=== PATIENT | female | born 1955 | race Caucasian/White ===

== ENCOUNTER 2020-03-27 12:50 | Emergency (ER) | payer MEDICARE, SELFPAY ==
[2020-03-27 12:57] VITALS: BP 171/93; PULSE 86; RESP 18; TEMP 36.8; O2SAT 98; BMI 31.5
--- NOTE | 2020-03-27 13:15 | HMH.EDSKAF ---
ED Disposition Clinical Impression: Cellulitis, Insect bites Disposition: Home, Self-Care Condition on Discharge: Good Instructions: DI for Skin Abscess Prescriptions: Doxycycline Hyclate [Doxycycline 100mg Capsule] 100 mg PO BID 14 Days #28 cap Transmission Status: Pending to [facility] #[id number] Referrals: Oz Fitzgerald MD [Primary Care Provider] - - Critical Care Critical Care Time: No Attestation: On , the high probability of a clinically significant, sudden or life threatening deterioration of the following system(s) required my full and direct attention, intervention and personal management. The time I documented below is in addition to time spent performing reported procedures but includes the following listed in this critical care notation. Medical Decision Making - Medical Records Medical records reviewed: Yes: I reviewed the patient's medical records. - Quentin Inquiry Pt receiving controlled substance: No Vital Signs: 03/27/20 12:57 Temperature 98.3 F Temperature Source Oral Pulse Rate [Left Radial] 86 Respiratory Rate 18 Blood Pressure [Left Arm] 171/93 H Blood Pressure Mean [Left Arm] 119 Blood Pressure Source [Left Arm] Automatic Cuff Blood Pressure Position [Left Arm] Sitting 02 Sat by Pulse Oximetry 98 Oxygen Delivery Method Room Air - Lab Data Lab results reviewed: Yes: I reviewed the patient's lab results. Skin/Abscess/FB HPI - General Chief complaint: Skin/Abscess/Foreign Body Stated complaint: tick bite Time Seen by Provider: 03/27/20 13:15 Mode of Arrival: Ambulatory Source of Information: Patient Limitations: No Limitations Description of Symptoms (Recalled from ER Triage Doc. by RN): Pt reports last night she pulled a large tick off of her in her groin area. Pt reports she thinks the head of tick is still under her skin, states area is inflammed. - History of Present Illness HPI narrative: 64-year-old female presents the ED with a tick bite. Patient was bit by a tick a couple of days ago in the groin area and she is noticed some significant erythema and swelling in the area. She also states that is draining as well. She states the pain is about 3 out of 10 pressure-like sensation alleviating factors include warm compresses. Patient denies any recent subjective or objective fevers patient also denies any chills or shakes. Patient also denies any nausea or vomiting. - Related Data Home Medications Medication Instructions Recorded Confirmed Losartan Potassium 50 mg PO BID 05/10/20 05/10/20 Pantoprazole Sodium [Protonix 40mg 40 mg PO DAILY 03/27/20 03/27/20 tablet] Triamterene/Hydrochlorothiazid 1 each PO DAILY 03/27/20 03/27/20 [Triamterene-Hctz 37.5-25 mg Tb] Previous Rx's Medication Instructions Recorded Doxycycline Hyclate [Doxycycline 100 mg PO BID 14 Days #28 cap 03/27/20 100mg Capsule] Allergies Allergy/AdvReac Type Severity Reaction Status Date / Time No Known Allergies Allergy Verified 03/27/20 13:08 [facility] History - Hepatitis A Screen Drug use history?: No High risk sexual behaviors?: No History of sexually transmitted infection?: No Currently employed?: No Childcare worker?: No Do you have indoor plumbing?: Yes Do you have electricity?: Yes Attestation statement:: This patient has been screened for Hepatitis A risk factors. I have reviewed the patient's past medical history: Yes Medical History: Denies:: Diabetes Mellitus Type 1, Diabetes Mellitus Type 2 - Social History Alcohol Intake: never Occupational Status: other ROS Obtained: Yes All systems reviewed & no additional complaints - Constitutional Constitutional: Reports system reviewed and no additional complaints, except as docu - Eyes Eyes: Reports system reviewed and no additional complaints, except as docu - ENT Ears, Nose, Mouth, and Throat: Reports system reviewed and no additional complaints, except as docu - Cardi
[2020-03-27 13:48] VITALS: BP 145/89; PULSE 82; RESP 20; TEMP 36.8; O2SAT 98
== END 2020-03-27 13:48 | disposition home or self-care (01) ==
PROVIDERS: Emergency Provider Family Medicine; PCP Specialist
DX: L03.314 Cellulitis of groin (principal); W57.XXXA Bitten or stung by nonvenomous insect and other nonvenomous arthropods, initial encounter; I10 Essential (primary) hypertension
CPT/HCPCS: 99281

== ENCOUNTER 2023-06-14 10:24 | Emergency (ER) | payer MEDICARE, SELFPAY ==
[2023-06-14 10:25] VITALS: BP 140/81; PULSE 82; RESP 18; TEMP 36.9; O2SAT 97; BMI 34.5
[2023-06-14 10:41] VITALS: BP 140/81; PULSE 83; O2SAT 95
--- NOTE | 2023-06-14 10:41 | CT_ITS ---
FINAL REPORT TECHNIQUE: Thin section axial CT images of the right hip with coronal and sagittal reformats were performed. This study was performed with techniques to keep radiation doses as low as reasonably achievable (ALARA). Individualized dose reduction techniques using automated exposure control or adjustment of mA and/or kV according to the patient''s size were employed. CLINICAL HISTORY: right hip pain FINDINGS: There are no fractures. There are no masses or fluid collections there are mild degenerative changes.. There are no soft tissue abnormalities. IMPRESSION: Mild degenerative changes without evidence of fracture or bony destruction. Reviewed, Interpreted and Dictated by Malick Iniguez MD Transcribed by Brittney Carver Authenticated and [facility]
--- NOTE | 2023-06-14 10:41 | CT_ITS ---
FINAL REPORT TECHNIQUE: IV contrast enhanced exam. CLINICAL HISTORY: RLQ/R groin/Rhip pain FINDINGS: Abdomen: No acute density is seen within the lung bases. The gallbladder is unremarkable. There are cysts seen in the anterior liver dome. There is an indeterminate right renal mass which could represent complex cyst or solid neoplasm measuring 14 mm. The remaining solid abdominal organs are unremarkable. There is mild biliary ductal dilatation. No bowel obstruction is present. There is no free air. No fluid collection is seen. There is no adenopathy. Pelvis: The appendix is normal. Uterus and ovaries are within normal limits. There is a small right inguinal hernia containing fat. No bowel wall thickening is present. There is no free fluid. No pelvic mass is seen. IMPRESSION: Indeterminate right renal mass which could represent complex cyst or solid neoplasm. Recommend follow-up renal mass protocol CT for further evaluation. Reviewed, Interpreted and Dictated by Malick Iniguez MD Transcribed by Brittney Carver Authenticated and [facility]
--- NOTE | 2023-06-14 10:43 | HMH.EDGENADL ---
Discharge Plan Disposition Patient Disposition: Home, Self-Care Prescriptions Prescriptions: New nitrofurantoin monohyd/m-cryst 100 mg capsule 100 mg PO BID 5 Days Qty: 10 0RF Rx Instructions: must administer with a meal/food No Action losartan 50 MG tablet 50 mg PO BID pantoprazole 40 MG tablet,delayed release (DR/EC) 40 mg PO DAILY triamterene-hydrochlorothiazid 1 EACH tablet 1 each PO DAILY doxycycline hyclate 100 MG capsule 100 mg PO BID 14 Days Qty: 28 0RF Referrals Follow up/Referrals: Provider,Referral, [Primary Care Provider] - See instructions Activity Restrictions/Add. Instructions Additional Instructions/Restrictions: No explanation for your chronic right groin pain please follow-up with an orthopedic surgeon to discuss outpatient MRI or other additional diagnostic tests or work-up. He did have some mild degenerative changes of the right hip which could be causing some of your pain. Additionally there was an incidental finding of a small mass versus cyst on your kidney and a recommended renal protocol CAT scan has been suggested to be performed outpatient please follow-up with primary care doctor regarding this. Return with any worsening symptoms or concerns Clinical Impressions Clinical Impression: Right groin pain, Acute UTI, Kidney mass Discharge ED Provider: Lexy Beaza General Adult HPI General Chief complaint: PAIN Stated complaint: groin pain Time Seen by Provider: 06/14/23 10:33 History of Present Illness HPI narrative: 67-year-old female here with right groin pain. She states that this pain began in November of this year after she was walking her dog and fell and landed directly onto a concrete step. Since that time she has had some intermittent pain that was relieved at one point by some oral steroids but pain returned. She states over the last week is gotten worse and woke her up this morning from sleep. She states that the pain has been severe worsen with movement. No bulging that she is aware of redness warmth fevers or chills. She also states that today she had a low bit of urinary retention and has had decreased bowel movements as of late. No abdominal surgeries in the past. No dysuria frequency or urgency. She additionally does state that her bowel movements are irregular at baseline. Related Data Home Medications Medication Instructions Recorded Confirmed losartan 50 mg tablet 50 mg PO BID Hypertension 03/27/20 03/27/20 pantoprazole 40 mg tablet,delayed 40 mg PO DAILY GERD 03/27/20 03/27/20 release triamterene 37.5 1 each PO DAILY Hypertension 03/27/20 03/27/20 mg-hydrochlorothiazide 25 mg tablet Previous Rx's Medication Instructions Recorded doxycycline hyclate 100 mg capsule 100 mg PO BID 14 days #28 caps 03/27/20 nitrofurantoin 100 mg PO BID 5 days #10 caps 06/14/23 monohydrate/macrocrystals 100 mg capsule Allergies Allergy/AdvReac Type Severity Reaction Status Date / Time No Known Allergies Allergy Verified 03/27/20 13:08 [facility] Disclaimer: The information contained in this section may have been updated after the patient was seen, as this information can be updated by other users. Social History Smoking Status: Never smoker alcohol intake: never current occupational status: other Travel in the last 8 weeks: None ROS Obtained: Yes All systems reviewed & no additional complaints except as documented Physical Exam General General appearance: alert Respiratory Respiratory exam: Present normal lung sounds bilaterally Cardiovascular Cardiovascular exam: Present regular rate; Absent tachycardia Abdominal Exam Abdominal exam: Present other (PatientRight lower quadrant tenderness no rebound guarding masses other symptoms) External exam: Present other (Right inguinal canal tenderness but there is no definitive hernia erythema swelling etc. Right hip exam is normal from range of motion
[2023-06-14 10:55] LABS: Microscopic, Urine URINE MICROSCOPIC (MICROSCOPIC)
[2023-06-14 11:00] VITALS: BP 134/68; PULSE 75; O2SAT 96
[2023-06-14 11:04] LABS: Appearance,Urine CLEAR (Clear); Bilirubin,Urine Negative (Negative); Blood, Urine Negative (Negative); Color,Urine YELLOW (Yellow); Glucose,Urine (UA) Negative (Negative); Ketones,Urine Negative (Negative); Leukocyte Esterase,Urine 1+ (Negative); Nitrate,Urine Negative (Negative); PH,Urine 5.5 (5.0-8.5); Protein,Urine Negative (Negative); Specific Gravity, Urine 1.025 (1.005-1.030); Urobilinogen,Urine 0.2 EU/dl (0.2)
[2023-06-14 11:05] LABS: Basophils # 0.1 K/mm3 (0-0.2); Basophils % 0.6 % (0.1-2.0); Eosinophils # 0.1 K/mm3 (0.0-0.4); Eosinophils % 1.4 % (0.1-12.0); Hematocrit 42.7 % (37.0-47.0); Hemoglobin 14.1 g/dL (12.2-16.2); Lymphocytes # 1.7 K/mm3 (0.7-4.5); Lymphocytes % 17.5 % (10-50); Mean Corpuscular HGB Conc 32.9 g/dL (31.8-35.4); Mean Corpuscular Hemoglobin 29.2 pg (27.0-31.2); Mean Corpuscular Volume 88.8 fl (81-99); Mean Platelet Volume 9.2 fl (7.4-10.4); Monocytes # 0.5 K/mm3 (0.1-1.0); Monocytes % 5.1 % (1.7-9.3); Neutrophils # 7.4 K/mm3 (1.8-7.8); Neutrophils % 75.4 % (37.0-80.0); Platelet Count 222 K/mm3 (142-424); Red Blood Count 4.81 M/mm3 (4.20-5.40); Red Cell Distribution Width 13.2 % (11.5-17.5); White Blood Count 9.9 K/mm3 (4.8-10.8)
[2023-06-14 11:07] LABS: Chloride 104 mmol/L (98-107); Sodium 140 mmol/L (136-145)
[2023-06-14 11:09] LABS: Blood Urea Nitrogen 30 mg/dl (7-17); Estimated Glomerular Filt Rate 55 ml/min (>60); GFR (African American) 67 ML/MIN (>60)
[2023-06-14 11:10] LABS: Alanine Aminotransferase 42 U/L (12-78); Albumin/Globulin Ratio 1.3 (1.1-1.8); Alkaline Phosphatase 87 U/L (38-126); Aspartate Amino Transferase 43 U/L (14-36); Bilirubin,Total 0.6 mg/dl (0.2-1.3); Calcium 9.9 mg/dl (8.4-10.2); Carbon Dioxide 26 mmol/L (22.0-30.0); Globulin 3.2 g/dL (1.3-3.2); Glucose 132 mg/dl (74-100); Total Protein,Serum 7.2 g/dl (6.3-8.2)
[2023-06-14 11:16] LABS: Bacteria,Urine 1+ /lpf; RBC,Urine Occasional #/hpf (0-3); Squamous Epithelial Cell,Urine Occasional #/hpf (0-5)
[2023-06-14 11:17] LABS: Hyaline Casts,Urine Occasional #/lpf (0)
[2023-06-14 12:01] VITALS: BP 133/78; PULSE 66; O2SAT 97
[2023-06-14 12:31] VITALS: BP 115/65; PULSE 72; O2SAT 98
[2023-06-14 14:00] VITALS: BP 149/65; PULSE 72; RESP 18; TEMP 36.6; O2SAT 98
== END 2023-06-14 14:00 | disposition home or self-care (01) ==
PROVIDERS: Emergency Provider Student in an Organized Health Care Education/Training Program
DX: R10.2 Pelvic and perineal pain (principal); N39.0 Urinary tract infection, site not specified; N28.89 Other specified disorders of kidney and ureter
CPT/HCPCS: 73700; 74177; 80053; 81001; 85025; 87086; 96361; 96374; 96375; 99285; J2405; Q9967